=== PATIENT | female | born 2000 | race Caucasian/White ===

== ENCOUNTER → 2023-04-30 07:34 | Outpatient (CLI) | payer OTHER, SELFPAY ==
--- NOTE | ~2023-04-30 | US_ITS ---
Pelvic ultrasound. Clinical History: First trimester , evaluate dates and viability Technique: Realtime transabdominal and transvaginal scanning of the pelvis was performed. Color flow Doppler and Doppler spectral analysis were performed. Findings: The uterus is anteverted, and contains an intrauterine gestation. [place]-rump length of 2.1 cm corresponds to an estimated gestational age of 8 weeks 5 days. heart rate is 171 bpm. The right ovary measures 2.2 x 3.2 x 2.1 cm. No significant right ovarian or adnexal mass is seen. The left ovary is not visualized. No significant left ovarian or adnexal mass is seen. There is no evidence of free fluid in the cul de sac. Impression: Live intrauterine gestation with estimated gestational age of 8 weeks 5 days. heart rate is 171 bpm. Sonographic ALISIA is 12/06/2023. Reviewed, dictated and finalized at [facility]. N BELT Impression: Live intrauterine gestation with estimated gestational age of 8 weeks 5 days. F etal heart rate is 171 bpm. Sonographic ALISIA is 12/06/2023.
== END ==
PROVIDERS: PCP Internal Medicine; Visit Provider Obstetrics & Gynecology
DX: N91.2 Amenorrhea, unspecified (principal); Z3A.08 8 weeks gestation of pregnancy
CPT/HCPCS: 76801

== ENCOUNTER 2023-04-30 08:27 | Outpatient (CLI) | payer OTHER, SELFPAY ==
[2023-04-30 12:23] LABS: Basophils Percent Auto 0.2 % (0.2-1.2); Eosinophils Percent Auto 0.4 % (0-4.4); Hemoglobin 12.9 g/dL (12.0-15.0); Immature Granulocyte Absolute 0.03 K/mm3 (0.00-0.031); Immature Granulocyte Percent A 0.4 % (0-0.5); Lymphocytes Absolute Auto 1.21 K/mm3 (0.9-3.2); Lymphocytes Percent Auto 14.6 % (18.3-44.2); Mean Corpuscular HGB Conc 33.1 g/dl (32-36); Mean Corpuscular Volume 93.8 fl (80-100); Mean Platelet Volume 10.1 fl (7.4-10.4); Monocytes Absolute Auto 0.5 K/mm3 (0.1-0.6); Monocytes Percent Auto 5.8 % (2.6-8.5); Neutrophils Absolute Auto 6.5 K/mm3 (1.3-6.7); Neutrophils Percent Auto 78.6 % (45.5-73.1); Platelet Count Result 331 k/mm3 (150-375); Red Blood Count 4.16 M/mm3 (4.2-5.4); Red Cell Distribution Width 11.7 % (11.5-14.5); White Blood Count 8.3 K/mm3 (4.5-10.0)
[2023-04-30 13:07] LABS: HIV 1/2 Ab P24 Ag Result Negative (Negative)
[2023-04-30 13:32] LABS: Hepatitis B Surface Antigen Negative (Negative); Rubella IgG Antibody 21.1 IU/ML
[2023-04-30 14:53] LABS: Rapid Plasma Reagin Non-Reactive (NonReactive)
[2023-05-02 09:53] LABS: CMV IgG Antibody <0.60 U/mL (<0.60)
== END 2023-04-30 08:28 | disposition home or self-care (01) ==
LOC: ANHGOSHLAB 08:28
PROVIDERS: PCP Internal Medicine; Visit Provider Obstetrics & Gynecology
DX: N91.2 Amenorrhea, unspecified (principal)
CPT/HCPCS: 36415; 84702; 85025; 86592; 86644; 86703; 86747; 86762; 86787; 86850; 86900; 86901; 87086; 87340; G0432

== ENCOUNTER 2023-11-20 09:51 | Outpatient (CLI) | payer OTHER, MEDICAID, SELFPAY ==
[2023-11-20 10:19] VITALS: BP 134/83; PULSE 85
[2023-11-20 10:25] LABS: Basophils Percent Auto 0.2 % (0.2-1.2); Eosinophils Absolute Auto 0.1 K/mm3 (0-0.3); Eosinophils Percent Auto 1.5 % (0-4.4); Hematocrit 30.7 % (37.0-47.0); Hemoglobin 9.4 g/dL (12.0-15.0); Immature Granulocyte Absolute 0.08 K/mm3 (0.00-0.031); Immature Granulocyte Percent A 0.9 % (0-0.5); Lymphocytes Absolute Auto 1.43 K/mm3 (0.9-3.2); Lymphocytes Percent Auto 16.5 % (18.3-44.2); Mean Corpuscular HGB Conc 30.6 g/dl (32-36); Mean Corpuscular Hemoglobin 25.8 pg (26-34); Mean Corpuscular Volume 84.1 fl (80-100); Mean Platelet Volume 9.8 fl (7.4-10.4); Monocytes Absolute Auto 0.7 K/mm3 (0.1-0.6); Monocytes Percent Auto 7.9 % (2.6-8.5); Neutrophils Absolute Auto 6.3 K/mm3 (1.3-6.7); Platelet Count Result 298 k/mm3 (150-375); Red Blood Count 3.65 M/mm3 (4.2-5.4); Red Cell Distribution Width 15.1 % (11.5-14.5); White Blood Count 8.7 K/mm3 (4.5-10.0)
[2023-11-20 10:29] LABS: Appearance Urine Cloudy (Clear); Bacteria Urine Rare /hpf; Bilirubin Urine Negative (Negative); Blood Urine Negative (Negative); Color Urine Yellow (Yellow); Glucose Urine UA Negative (Negative); Ketones Urine Negative (Negative); Leukocyte Esterase Ur Trace LEU/UL (Negative); Nitrate Urine Negative (Negative); Protein Urine 2+ mg/dL (Negative); RBC Urine 0-2 /hpf (0-2); Specific Grav Ur 1.019 (1.001-1.035); Squamous Epithelial Cell Urine Many /hpf (Few); Urobilinogen Urine 0.2 mg/dL (<2.0)
[2023-11-20 10:30] VITALS: BP 129/87; PULSE 82
[2023-11-20 10:32] LABS: Add Urine Microscopic? YES
[2023-11-20 10:36] LABS: Alanine Aminotransferase 12 U/L (6-35); Albumin Level 3.4 g/dL (3.5-5.1); Alkaline Phosphatase 223 U/L (38-126); Anion Gap 8 mmol/L (4-12); Aspartate Amino Transferase 24 U/L (14-36); Bilirubin,Total 0.4 mg/dL (0.2-1.3); Blood Urea Nitrogen 9 mg/dL (7-17); Calcium 8.8 mg/dL (8.4-10.2); Carbon Dioxide 18 mmol/L (22-30); Chloride 109 mmol/L (98-107); Estimated Glomerular Filt Rate > 60; Glucose 81 mg/dL (65-110); Potassium 3.9 mmol/L (3.4-5.0); Sodium 135 mmol/L (137-145); Uric Acid 6.2 mg/dL (2.5-7.5)
[2023-11-20 10:45] VITALS: BP 134/84; PULSE 81
[2023-11-20 10:53] LABS: Creatinine Urine 164.7 mg/dL; Total Protein Urine Random 139 mg/dL; Ur Ttl Prot Creatinine Ratio 0.84 mg/mg (0-0.20)
[2023-11-20 11:00] VITALS: BP 130/85; PULSE 81
[2023-11-20 11:15] VITALS: BP 139/85; PULSE 84
== END 2023-11-20 11:30 | disposition home or self-care (01) ==
LOC: ANHOBOP 09:58 → ANHLDR 09:59
PROVIDERS: PCP Internal Medicine; Visit Provider Obstetrics & Gynecology
DX: O13.9 Gestational [pregnancy-induced] hypertension without significant proteinuria, unspecified trimester (principal); Z3A.00 Weeks of gestation of pregnancy not specified
CPT/HCPCS: 36415; 59025; 80053; 81001; 82570; 84156; 84550; 85025; 87086; 99199

== ENCOUNTER 2023-11-21 16:35 | Inpatient (IN) | payer OTHER, MEDICAID, SELFPAY ==
[2023-11-21] VITALS (28 sets, daily range): BP systolic 111–149; BP diastolic 68–101; PULSE 72–99; TEMP 36.9–37.3; BMI 29.2
--- NOTE | 2023-11-21 16:35 | LDADM ---
This patient, Dawn Elias, was admitted to Labor/Delivery/Recovery 108 on 11/21/23 at 16:35. Plans for labor, pain management and were discussed with patient. Patient/family oriented to hospital policies and general routines including ID bracelet, bed and alarms, visiting hours, pain management, procedures, bathroom and other care routines, personal items, smoking policy, room service/diet and guest tray routines, infant security routines, and visiting hours. Patient/Family are encouraged to report perceived risks to care and to ask questions if they do not understand what they are told or what they should do. See OBIX for further documentation.
[2023-11-21 17:03] LABS: Basophils Percent Auto 0.3 % (0.2-1.2); Eosinophils Absolute Auto 0.1 K/mm3 (0-0.3); Eosinophils Percent Auto 0.7 % (0-4.4); Hematocrit 29.2 % (37.0-47.0); Hemoglobin 9.2 g/dL (12.0-15.0); Immature Granulocyte Absolute 0.06 K/mm3 (0.00-0.031); Immature Granulocyte Percent A 0.6 % (0-0.5); Lymphocytes Absolute Auto 1.41 K/mm3 (0.9-3.2); Lymphocytes Percent Auto 13.2 % (18.3-44.2); Mean Corpuscular HGB Conc 31.5 g/dl (32-36); Mean Corpuscular Volume 82.5 fl (80-100); Mean Platelet Volume 10.1 fl (7.4-10.4); Monocytes Absolute Auto 0.8 K/mm3 (0.1-0.6); Monocytes Percent Auto 7.5 % (2.6-8.5); Neutrophils Absolute Auto 8.3 K/mm3 (1.3-6.7); Neutrophils Percent Auto 77.7 % (45.5-73.1); Platelet Count Result 311 k/mm3 (150-375); Red Blood Count 3.54 M/mm3 (4.2-5.4); Red Cell Distribution Width 15.3 % (11.5-14.5); White Blood Count 10.7 K/mm3 (4.5-10.0)
[2023-11-21] MEDS: DINOPROSTONE 10 MG VAG INSERT VAGINAL (17:25)
[2023-11-21 18:08] LABS: HIV 1/2 Ab P24 Ag Result Negative (Negative)
[2023-11-21] MEDS: ACETAMINOPHEN 500 MG TABLET 1000 MG PO (20:04)
--- NOTE | 2023-11-21 20:59 | WPDANESEPP ---
Anes - Eval Pre Procedure Procedure: labor epidural Date/Time: 11/21/23 20:59 Preop Diagnosis: pain during labor Pre Op Diagnosis: IOL Patient Data Age: 23 Gender: F Height: 1.6 m Weight: 75 kg Last Vital Signs Temp 37.1 C 11/21/23 17:33 Pulse 94 11/21/23 20:45 BP 122/73 11/21/23 20:45 Allergies Allergy/AdvReac Type Severity Reaction Status Date / Time codeine Allergy Mild Nausea and Verified 11/20/23 09:15 Vomiting Home Medications Medication Instructions Recorded Confirmed Type buspirone 15 mg tablet 30 mg PO BID 04/09/23 11/20/23 History escitalopram oxalate 20 mg tablet 20 mg PO DAILY 04/09/23 11/20/23 History (Lexapro) trazodone 50 mg tablet 50 mg PO QHS PRN Insomnia 04/09/23 11/20/23 History hydroxyzine HCl 50 mg tablet 50 mg PO PRN PRN Panic Attack(S) 11/09/23 11/21/23 History vits no.126-ferrous fum 1 tablet PO DAILY 11/09/23 11/20/23 History 28 mg iron-folic acid 800 mcg tablet (Classic ) Laboratory Tests 11/21/23 16:58 WBC 10.7 H K/mm3 (4.5-10.0) RBC 3.54 L M/mm3 (4.2-5.4) Hgb 9.2 L g/dL (12.0-15.0) Hct 29.2 L % (37.0-47.0) MCV 82.5 fl (80-100) MCH 26.0 pg (26-34) MCHC 31.5 L g/dl (32-36) RDW 15.3 H % (11.5-14.5) Plt Count 311 k/mm3 (150-375) MPV 10.1 fl (7.4-10.4) Immature Gran % (Auto) 0.6 H % (0-0.5) Neut % (Auto) 77.7 H % (45.5-73.1) Lymph % (Auto) 13.2 L % (18.3-44.2) [place] % (Auto) 7.5 % (2.6-8.5) Eos % (Auto) 0.7 % (0-4.4) Baso % (Auto) 0.3 % (0.2-1.2) Lymph # (Auto) 1.41 K/mm3 (0.9-3.2) [place] # (Auto) 0.8 H K/mm3 (0.1-0.6) Eos # (Auto) 0.1 K/mm3 (0-0.3) Baso # (Auto) 0.0 K/mm3 (0.0-0.1) Abs Immat Gran (auto) 0.06 H K/mm3 (0.00-0.031) Absolute Neuts (auto) 8.3 H K/mm3 (1.3-6.7) Absolute Nucleated RBC 0.000 K/mm3 (0.0-0.012) Nucleated RBC % 0.0 % (0.0-0.2) RPR Pending HIV 1&2 Ab/P24 Ag 4thGn Negative (Negative) Blood Type B Positive Antibody Screen Negative Patient hx anesthesia problems: none Family hx anesthesia problems: none Results Review: All pre-operative results and documents have been reviewed as part of the pre-operative evaluation. [facility] Past Medical History Medical History Anemia Anxiety and depression High cholesterol Thyroid disease Surgical History Surgical History History of tonsillectomy (~2003) [place] teeth removed (~2015) Family History Family History Grandparent Epilepsy maternal grandmother Diabetes mellitus maternal grandfather / paternal grandmother Breast cancer paternal grandmother Hypertension Sleep apnea Mother Anxiety Social History Social History Smoking status: Former smoker Tobacco type: e-cigarettes/vaping Smoking end date: 04/04/23 Additional smoking assessment comments: pt states she vapes prior to being , plans start after baby is born Alcohol intake: former Alcohol use details: occasionally Substance use: never Substance use type: marijuana Last use: 04/04/2023 Do You Feel Safe in your Home?: Yes Lack of Transportation: No Lack of Food: Never True Current Housing: I Have Housing Concerned About Future Housing: No Difficulty Paying Gas/Electric Bills: No Difficulty Paying for Meds: No Currently Unemployed: No Education: Associate Degree Difficulty w/ Childcare or Family Care: No Living arrangements: other Additional living arrangements comments: significant other Occupation/Education: unemployed Gender identity (if verbalized by the patient): Female Sexual Orientation (if Verbalized by the Patient): Straight o
[2023-11-21] MEDS: ESCITALOPRAM OXALATE 10 MG TABLET 20 MG PO (21:07)
[2023-11-21] MEDS: busPIRone HCL 10 MG TABLET 30 MG PO (21:07)
[2023-11-21] MEDS: fentaNYL CITRATE INJ (*CRX) 100 MCG/2 ML VIAL 50 MCG IV PUSH (23:33)
[2023-11-22] VITALS (140 sets, daily range): BP systolic 108–154; BP diastolic 54–105; PULSE 70–126; RESP 14–16; TEMP 36.2–37.2; O2SAT 94–100
[2023-11-22] MEDS: fentaNYL CITRATE INJ (*CRX) 100 MCG/2 ML VIAL 50 MCG IV PUSH (02:24)
[2023-11-22] MEDS: LACTATED RINGERS 1,000 ML 125 ML IV CONT ×2 (04:28→05:07)
[2023-11-22] MEDS: OXYTOCIN 30 UNITS/NS 500 ML 30 UNITS/500 ML BAG 6 UNITS IV CONT (05:07)
[2023-11-22] MEDS: ONDANSETRON INJ 4 MG/2 ML VIAL IV PUSH (05:48)
--- NOTE | 2023-11-22 10:40 | P.PCNOB_ITS ---
OB - Vaginal Delivery Note Procedure Delivery date: 11/22/23 Events: Gestational Hypertension Induction method: Per Cervidil Protocol Delivery augmentation: Rupture of Membranes and Pitocin Delivery monitor: External FHT and External Uterine Route of delivery: Episiotomy description: None Laceration Description: Perineal - 2nd Degree Delivery repair: chromic Specimen: Yes Quantitative Blood Loss (ml): 300 Anesthesia type: Epidural Disposition: Floor Complications: No immediate complications Narrative: Patient prepped and draped in usual manner for this procedure. Maternal expulsive efforts readily delivered vertex, rest of baby delivered without difficulty. Cord clamped cut and placenta delivered spontaneously. Uterus was well contracted. Cervix vagina vulva were inspected with second-degree midline laceration noted. This was approximated using 2-0 chromic in running interlocking manner with good approximation noted. Uterus was still well contracted with minimal bleeding. Procedure was considered terminated. [place] Baby Weeks of gestation at delivery: 38 gender: Female Weight (pounds): 6 Weight (ounces): 2 presentation: vertex position: Right Occiput Anterior Placenta delivery description: Spontaneous Cord Vessel Description: 3 Vessels
--- NOTE | 2023-11-22 10:40 | WPDOBADMIT ---
Obstetrics - Admit Note Admission Note: record reviewed. No pertinent additions to the history and/or any subsequent changes in the physical findings that are not consistent with the expected course of the were found. Additions to the history and/or subsequent changes in the physical findings follow. None.
--- NOTE | 2023-11-22 10:40 | WPDHPUPDATE1 ---
History and Physical Update Update Date/Time: 11/22/23 10:40 History and Physical has been reviewed, including an updated exam of the patient. There are NO changes in the patient's condition. Risks, benefits, and alternatives have been discussed and questions answered. Patient agrees to proceed with procedure.
[2023-11-22] MEDS: OXYTOCIN 30 UNITS/NS 500 ML 30 UNITS/500 ML BAG 125 UNITS IV CONT (10:58)
[2023-11-22 11:37] LABS: Rapid Plasma Reagin Non-Reactive (NonReactive)
--- NOTE | 2023-11-22 13:15 | OBPPTRN ---
Patient transferred to post room #291 via wheelchair. Support person present. Oriented to unit, room, information board, rooming in, admission packet and security measures. Patient verbalizes understanding.
[2023-11-22] MEDS: IBUPROFEN 600 MG TABLET PO (13:21)
[2023-11-22] MEDS: WITCH HAZEL 40 PADS 1 PAD TOPICAL (13:47)
[2023-11-22] MEDS: BENZOCAINE 20% AER SPR (*SP) 56 GM CAN 1 SPRAY TOPICAL (13:47)
--- NOTE | 2023-11-22 14:14 | OBPPTRN ---
Patient transferred to post room #291 via ( ). Support person present. Oriented to unit, room, information board, rooming in, admission packet and security measures. Patient verbalizes understanding.
[2023-11-22] MEDS: DOCUSATE SODIUM 100 MG CAPSULE PO (17:39)
[2023-11-22] MEDS: POLYSACCHARIDE IRON COMPLEX 150 MG CAPSULE PO (17:39)
[2023-11-22] MEDS: busPIRone HCL 10 MG TABLET 30 MG PO (21:43)
[2023-11-22] MEDS: ESCITALOPRAM OXALATE 10 MG TABLET 20 MG PO (21:43)
[2023-11-23] VITALS (12 sets, daily range): BP systolic 130–145; BP diastolic 80–97; PULSE 74–91; RESP 16–18; TEMP 36.6–37.2; O2SAT 98–100
[2023-11-23] MEDS: ACETAMINOPHEN 325 MG TABLET 650 MG PO ×3 (05:14→19:45)
[2023-11-23] MEDS: KETOROLAC 30 MG/ML VIAL (*BKC) IV PUSH (05:15)
[2023-11-23 05:26] LABS: Hematocrit 25.9 % (37.0-47.0); Hemoglobin 7.7 g/dL (12.0-15.0)
--- NOTE | 2023-11-23 07:57 | WPDANLDPN2 ---
Anes-Prog Note L&D Date/Time: 11/23/23 07:57 Comfortable throughout: labor and delivery Neuraxial method: epidural Epidural/Spinal procedure site: clean & non-tender Neuro status: Neuro function grossly intact. Cardiovascular status: normal Respiratory status: normal Airway patency: baseline Mental status: baseline Post-Op hydration status: normal Vital Signs: Last Vital Signs Temp 36.9 C 11/23/23 05:00 Pulse 89 11/23/23 05:00 Resp 18 11/23/23 05:00 BP 138/90 11/23/23 05:00 Pulse Ox 98 11/23/23 05:00 O2 Del Method Room Air 11/22/23 16:00 Pain score (VAS): 0/10 I/O: Intake & Output 11/22/23 11/22/23 11/23/23 15:59 23:59 07:59 Intake Total 0 600 Output Total 400 100 650 Balance -400 500 -650 Post-procedural complaints: none Patient feedback: Patient satisfied with anesthetic care.
[2023-11-23] MEDS: DOCUSATE SODIUM 100 MG CAPSULE PO ×2 (08:57→17:01)
[2023-11-23] MEDS: POLYSACCHARIDE IRON COMPLEX 150 MG CAPSULE PO ×2 (08:57→17:01)
[2023-11-23] MEDS: MULTIVIT/MIN/PREN/FOL AC/IRON TABLET 1 TAB PO (08:57)
--- NOTE | 2023-11-23 12:21 | P.PNOB_ITS ---
OB - PN: Subj Subjective Date/time seen: 11/23/23 12:21 Patient comments: no complaints, pain well controlled and tolerating diet [place] feeding status: exclusively breast feeding Narrative: patient doing well this AM. No complaints. Pain is well controlled. She reports minimal bleeding. She is ambulating and voiding without difficulty. She is tolerating PO. She denies N/V, fever, chills. OB - PN: Obj Data Labs 11/23/23 05:05 Labs: Laboratory Results - last 24 hr 11/23/23 05:05 Hgb 7.7 L Hct 25.9 L OB - PN A/P Plan day: 1 Plan: routine care Comments: patient doing well H/H 7.7/. Pt asymptomatic. Discussed blood transfusion with patient. Will administer 1 u pRBC. Will repeat CBC in AM continue, routine care anticipate d/c home tomorrow Time Spent With Patient Time: Total time spent is greater than 50% in coordination of care (as documented) at patient's floor/unit and/or counseling patient: Time with patient: less than 15 minutes Review of Systems Review of Systems: All systems reviewed & are unremarkable except as noted in HPI and below Exam Const: General: comfortable and no acute distress Resp: Effort & Inspection: normal respiratory effort Cardio: Rate: regular rate GI: GI Palp: Yes Soft to palpation and No Tenderness to palpation present (GI) Auscultation: normal bowel sounds Other: fundus firm and below umbilicus. Psych: Affect: normal affect
[2023-11-23] MEDS: SODIUM CHLORIDE 0.9% IV 250 ML 30 ML IV CONT (13:16)
[2023-11-23] MEDS: IBUPROFEN 600 MG TABLET PO ×2 (13:37→19:46)
[2023-11-23] MEDS: TUBING, BLOOD PLUM PUMP TUBING 1 EACH XX (13:40)
[2023-11-24] MEDS: ESCITALOPRAM OXALATE 10 MG TABLET 20 MG PO (00:08)
[2023-11-24] MEDS: busPIRone HCL 10 MG TABLET 30 MG PO (00:08)
[2023-11-24] MEDS: ACETAMINOPHEN 325 MG TABLET 650 MG PO ×2 (00:39→10:18)
[2023-11-24] MEDS: IBUPROFEN 600 MG TABLET PO ×2 (01:16→10:19)
[2023-11-24 01:18] VITALS: BP 140/88; PULSE 91; RESP 16; TEMP 36.8
[2023-11-24 04:46] VITALS: BP 146/86
[2023-11-24 04:52] LABS: Hematocrit 30.1 % (37.0-47.0); Hemoglobin 9.2 g/dL (12.0-15.0); Mean Corpuscular HGB Conc 30.6 g/dl (32-36); Mean Corpuscular Hemoglobin 26.6 pg (26-34); Platelet Count Result 247 k/mm3 (150-375); Red Blood Count 3.46 M/mm3 (4.2-5.4); Red Cell Distribution Width 15.5 % (11.5-14.5); White Blood Count 11.8 K/mm3 (4.5-10.0)
--- NOTE | 2023-11-24 08:00 | PC.NURSE ---
PT introductions made and plan of care discussed per post , pain management, bottle feeding, daily care activities and pending discharge to home. PT and significant other both recipients of such instructions and no barriers to learning identified at this time. PT received instructions via one to one discussion, mom baby care guide and demonstrations. PT verbalized understanding of such care.
--- NOTE | 2023-11-24 08:00 | PM.OBDSVD ---
DS: Admitting Diagnosis Discharge Date 11/24/23 Admitting Diagnosis intrauterine at term DS: Discharge Diagnosis Discharge Diagnosis (1) Normal vaginal delivery: Code(s): O80 - Encounter for full-term uncomplicated delivery Status: Acute OB - DS: Summary OB Procedures : None OB Procedures Intrapartum: Spontaneous Vag Delivery OB Procedures: : Transfusion Peripartum Data Infant Delivery Method: Natural Vaginal Laceration Description: Perineal - 2nd Degree Episiotomy description: None complications: transfusion Status at Discharge Functional status at discharge: independent ambulation Overall status at discharge: patient is back to baseline Time Spent with Patient Time attestation: Total time spent providing and/or coordinating discharge services: Time spent: Less than 30 minutes Exam Const: General: comfortable and no acute distress Resp: Effort & Inspection: normal respiratory effort Auscultation: clear to auscultation bilaterally Cardio: Rate: regular rate GI: GI Palp: Yes Soft to palpation Auscultation: normal bowel sounds Other: Fundus firm below umbilicus Psych: Appearance: grossly normal Mental Status: mental status grossly normal Affect: normal affect DS: Data Data Completed and Pending Pending studies at discharge: Pending at discharge 11/22/23 16:04 Surgical [PTH] Routine Labs on day of discharge: Labs from last 24 hours 11/24/23 11/21/23 04:37 16:58 WBC 11.8 H RBC 3.46 L Hgb 9.2 L Hct 30.1 L MCV 87.0 D MCH 26.6 MCHC 30.6 L RDW 15.5 H Plt Count 247 MPV 10.0 Blood Type B Positive Antibody Screen Negative Crossmatch See Detail Discharge Plan Discharge Discharging Clinician: Ankur Fontana Patient Disposition: Home, Self-Care Activity: as tolerated and pelvic rest Diet: regular Patient Instructions: Antibiotic Form, Vaginal Delivery (DC) Stand Alone Forms: General Discharge Information Follow-up/Referrals: Dav Love MD [Physician] - 1 Week (Blood Pressure check) Discharge Medications: New acetaminophen 500 mg tablet 500 mg PO Q6H PRN (Reason: pain) Qty: 30 0RF ibuprofen 600 mg tablet 600 mg PO Q6H PRN (Reason: pain) Qty: 30 0RF polysaccharide iron complex 150 mg iron Capsule 150 mg PO BIDWM Qty: 60 0RF Continued escitalopram oxalate [Lexapro] 20 mg tablet 20 mg PO DAILY trazodone 50 mg tablet 50 mg PO QHS PRN (Reason: Insomnia) buspirone 15 mg tablet 30 mg PO BID Classic 28 mg iron- 800 mcg Tablet 1 tablet PO DAILY hydroxyzine HCl 50 mg tablet 50 mg PO PRN PRN (Reason: Panic Attack(S)) Date of admission: 11/21/23 16:35 Primary Care Provider: Iwona,Elvia Admitting Provider: Dav Love Attending physician on admission: Dav Love Condition: Stable
[2023-11-24 10:00] VITALS: BP 138/85; PULSE 73; RESP 18; TEMP 36.8; O2SAT 100
[2023-11-24] MEDS: POLYSACCHARIDE IRON COMPLEX 150 MG CAPSULE PO (10:20)
[2023-11-24] MEDS: MULTIVIT/MIN/PREN/FOL AC/IRON TABLET 1 TAB PO (10:20)
[2023-11-24] MEDS: DOCUSATE SODIUM 100 MG CAPSULE PO (10:20)
--- NOTE | 2023-11-24 11:26 | PC.NURSE ---
PT discharged to home ambulatory accompanied by significant other and and walked to waiting car. Follow up appt confirmed
[2023-11-26 09:12] VITALS: BP 148/83; PULSE 69; RESP 18; TEMP 37.2; O2SAT 100
== END 2023-11-24 11:26 | disposition home or self-care (01) | DRG 807 ==
LOC: ANHOB2 11-24 09:27 → ANHLDR 11-27 06:05 → ANHOB2 11-27 06:05
PROVIDERS: Admitting Provider Obstetrics & Gynecology; PCP Internal Medicine; Visit Provider Student in an Organized Health Care Education/Training Program
DX: O13.4 Gestational [pregnancy-induced] hypertension without significant proteinuria, complicating childbirth (principal); Z37.0 Single live birth; O70.1 Second degree perineal laceration during delivery; Z3A.38 38 weeks gestation of pregnancy
CPT/HCPCS: 36415; 36430; 59025; 80053; 81001; 82570; 84156; 84550; 85014; 85018; 85025; 85027; 86592; 86703; 86850; 86900; 86901; 86923; 87086; 88307; 99199; A9270; G0432; J1885; J2405; J2590; J2795; J3010; J7050; J7120; P9016